=== PATIENT | male | born 1950 | race Two or more races ===

== ENCOUNTER 2018-08-22 12:32 | Outpatient (CLI) | payer MEDICAID, MEDICARE ==
[2018-08-22 13:04] LABS: ABG BASE EXCESS 5.3 mmol/L; ABG OXYGEN SATURATION 92.4 % (92.0-98.5); ABG PCO2 52.1 mmHg (35.0-45.0); ABG PH 7.401 (7.350-7.450); AaDO2 22.3 mmHg; COHb 1.2 % (0.5-1.5); MetHb 0.5 % (0.0-1.5); O2Hb 90.8 % (94.0-97.0); SITE, ABG Right Brachial; VENT MODE, BG room air
== END 2018-08-22 23:59 | disposition home or self-care (01) ==
LOC: LAB 12:32
PROVIDERS: ATTEND Internal Medicine Pulmonary Disease
DX: R06.02 Shortness of breath (principal)
CPT/HCPCS: 36600; 82803-TC